=== PATIENT | male | born 1985 ===

== ENCOUNTER → 2023-05-06 | Outpatient (REF) | payer OTHER ==
[2023-05-06 11:53] LABS: SEMEN APPEARANCE OPAQUE (OPAQUE); SEMEN VISCOSITY VISCOUS (LIQUID); SEMEN VOLUME 2.2 ml (2.0-5.0); SEMEN pH 8.5 (7.0-8.0)
[2023-05-06 11:54] LABS: SPERM CONCENTRATION 18.6 M/ml (>=15.0); WBC CONCENTRATION <=1 M/ml (<=1 M/ml)
== END ==
LOC: M LAB REF 11:17
PROVIDERS: ATTEND Obstetrics & Gynecology
DX: N46.8 Other male infertility (principal)

== ENCOUNTER → 2024-10-30 | Outpatient (CLI) | payer OTHER | LOC: M SOG 07:52 | PROVIDERS: ATTEND Physician Assistant | DX: S62.002A Unspecified fracture of navicular [scaphoid] bone of left wrist, initial encounter for closed fracture (principal) ==